=== PATIENT | female | born 1960 | race Caucasian/White ===

== ENCOUNTER 2017-02-21 10:38 | Emergency (ER) | payer BC ==
[~2017-02-21] VITALS: Ht 167.6 cm; Wt 80.0 kg
[2017-02-21 10:44] VITALS: BP 156/90; PULSE 81; RESP 15; TEMP 97.5; O2SAT 97
[2017-02-21] MEDS ORDERED: NEXI20CA PO (10:56)
[2017-02-21] MEDS ORDERED: ARMO180T PO (10:56)
[2017-02-21] MEDS ORDERED: LISI2.5T3 PO (10:56)
[2017-02-21] MEDS ORDERED: SODIUM CHLORIDE 0.9% FLUSH 10 ML FLUSH IVF PRN (11:00)
[2017-02-21] MEDS ORDERED: SODIUM CHLOR 0.9% 1000 ML INJ 1,000 ML IV ONE (11:15)
[2017-02-21 11:17] LABS: AUTOMATED NEUTROPHIL # 5.4 TH/MM3 (1.8-7.7); BASOPHIL # 0.1 TH/MM3 (0-0.2); BASOPHIL % 0.9 % (0.0-2.0); EOSINOPHIL # 0.2 TH/MM3 (0-0.4); EOSINOPHIL % 2.4 % (0.0-4.0); HEMATOCRIT 41.8 % (35.0-46.0); HEMO FLAGS DIFF FINAL; LYMPH % 16.8 % (9.0-44.0); LYMPHOCYTE # 1.3 TH/MM3 (1.0-4.8); MEAN CELL VOLUME 87.3 FL (80.0-100.0); MEAN CORPUSCULAR HEMOGLOBIN 29.7 PG (27.0-34.0); MONO % 7.4 % (0.0-8.0); NEUT % 72.5 % (16.0-70.0); PLATELET COUNT 319 TH/MM3 (150-450); RED CELL DISTRIBUTION WIDTH 12.6 % (11.6-17.2); WHITE BLOOD COUNT 7.6 TH/MM3 (4.0-11.0)
--- NOTE | 2017-02-21 11:17 | PD ---
HPI . Lightheadedness Chief Complaint: Syncope/Near-Syncope Time Seen by Provider: 11:00 Travel History International Travel<30 days: No Contact w/Intl Traveler<30days: No Traveled to known affect area: No History of Present Illness HPI Patient presents with a chief complaint of lightheadedness. Onset was yesterday. The patient admits that she's been outside a lot the last couple weeks and probably hasn't been drinking enough. She denies any other associated symptoms such as headache, blurred vision, chest pain, shortness of breath or nausea/vomiting. Symptoms are mild. The patient reports no obvious aggravating or relieving factors. PFSH Past Medical History Diminished Hearing: No GERD: Yes Hypertension: Yes Thyroid Disease: Yes Influenza Vaccination: Yes ?: Not Past Surgical History Cholecystectomy: Yes Other Surgery: Yes (breast augmentation) Social History Alcohol Use: Yes Tobacco Use: No Allergies-Medications (Allergen,Severity, Reaction): Coded Allergies: No Known Allergies (Unverified , 02/21/17) Reported Meds & Prescriptions Reported Meds & Active Scripts Active Reported Lisinopril 2.5 Mg Tab 2.5 Mg PO DAILY Nexium (Esomeprazole DR) 20 Mg Capdr 20 Mg PO DAILY [place] Thyroid (Thyroid) 180 Mg Tab 180 Mg PO DAILY Review of Systems Except as stated in HPI: all other systems reviewed are Neg General / Constitutional: No: Fever, Chills Eyes: No: Diploplia, Blurred Vision HENT: Positive: Lightheadedness, No: Headaches, Vertigo Cardiovascular: No: Chest Pain or Discomfort Respiratory: No: Shortness of Breath Gastrointestinal: No: Nausea, Vomiting Neurologic: No: Syncope, Focal Abnormalities, Headache, Change in Mentation, Slurred Speech Physical Exam Narrative GENERAL: Patient is awake and alert and in no acute distress. SKIN: Warm and dry. HEAD: Atraumatic. Normocephalic. EYES: Pupils equal and round. Extraocular movements are intact. ENT: No nasal bleeding or discharge. Mucous membranes pink and moist. NECK: Trachea midline. Neck is supple. CARDIOVASCULAR: Regular rate and rhythm. Heart sounds are normal. RESPIRATORY: No accessory muscle use. Lungs are clear with good air movement throughout. GASTROINTESTINAL: Abdomen soft, non-tender, nondistended. MUSCULOSKELETAL: No obvious deformities. No edema. NEUROLOGICAL: Awake and alert. No obvious cranial nerve deficits. Motor grossly within normal limits. Normal speech. Issurm-[id number] exam is intact. PSYCHIATRIC: Appropriate mood and affect; insight and judgment normal. Data Data Last Documented VS Vital Signs Date Time Temp Pulse Resp B/P Pulse Ox O2 Delivery O2 Flow Rate FiO2 02/21/17 11:23 82 18 180/69 87 18 180/86 94 18 183/98 02/21/17 10:44 97.5 97 Orders Electrocardiogram (02/21/17 11:00) Basic Metabolic Panel (Bmp) (02/21/17 11:00) Complete Blood Count With Diff (02/21/17 11:00) Ckmb (Isoenzyme) Profile (02/21/17 11:00) Troponin I (02/21/17 11:00) Ct Brain W/O Iv Contrast(Rout) (02/21/17 11:00) Ecg Monitoring (02/21/17 11:00) Iv Access Insert/Monitor (02/21/17 11:00) Oximetry (02/21/17 11:00) Sodium Chloride 0.9% Flush (Ns Flush) (02/21/17 11:00) Orthostatic Vital Signs (02/21/17 11:00) Sodium Chlor 0.9% 1000 Ml Inj (Ns 1000 M (02/21/17 11:15) Labs Laboratory Tests Test 02/21/17 11:05 White Blood Count 7.6 TH/MM3 Red Blood Count 4.80 MIL/MM3 Hemoglobin 14.2 GM/DL Hematocrit 41.8 % Mean Corpuscular Volume 87.3 FL Mean Corpuscular Hemoglobin 29.7 PG Mean Corpuscular Hemoglobin 34.0 % Concent Red Cell Distribution Width 12.6 % Platelet Count 319 TH/MM3 Mean Platelet Volume 7.9 FL Neutrophils (%) (Auto) 72.5 % Lymphocytes (%) (Auto) 16.8 % Monocytes (%) (Auto) 7.4 % Eosinophils (%) (Auto) 2.4 % Basophils (%) (Auto) 0.9 % Neutrophils # (Auto) 5.4 TH/MM3 Lymphocytes # (Auto) 1.3 TH/MM3 Monocytes # (Auto) 0.6 TH/MM3 Eosinophils # (Auto) 0.2 TH/MM3 Basophils # (Auto) 0.1 TH/MM3 CBC Comment DIFF FINAL Differential Comment Sodium Level 140 MEQ/L Potassium Level 3.9 MEQ/L Chloride Level 105 MEQ/L Carbon Dioxide Level 26.3 MEQ/L Anion Gap 9 MEQ/L Blood Urea Nitrogen 8 MG/DL Creatinine 0.61 MG/DL Estimat Glomerular Filtration 102 ML/MIN Rate Random Glucose 96 MG/DL Calcium Level 8.9 MG/DL Total Creatine Kinase 44 U/L Troponin I LESS THAN 0.02 NG/ML MDM Medical Decision Making Medical Screen Exam Complete: Yes Emergency Medical Condition: Yes Interpretation(s) EKG shows a normal sinus rhythm with no ST segment elevation or depression. Differential Diagnosis Differential diagnosis of dizziness includes but is not limited to vertigo, dehydration, acute blood loss, sepsis, ACS Narrative Course Patient presents for the evaluation of lightheadedness. She thinks that she has not been drinking enough. She does not have any other complaints. Orthostatic vital signs were negative. She did however complain of feeling lightheaded and weak on going from supine to sitting to standing. CBC & BMP Diagram 02/21/17 11:05 Cardiac enzymes are negative. Last Impressions Head CT 02/21/17 1100 Signed Impressions: Service Date/Time: Friday, February 21, 2017 11:16 - CONCLUSION: 1. No acute abnormality. Armani Pruett MD Emergency Department evaluation reveals no emergency medical condition. The patient is stable for discharge to home. Diagnosis Primary Impression: Lightheadedness Patient Instructions: General Instructions, Lightheadedness (ED) Disposition: 01 DISCHARGE HOME Condition: Stable Gladys Schumacher MD Feb 21, 2017 11:17
[2017-02-21 11:23] VITALS: BP_SYST 180; BP_SYST 183; BP_DIAS 69; BP_DIAS 86; BP_DIAS 98; RESP 18
[2017-02-21 11:28] LABS: CHLORIDE 105 MEQ/L (98-107); POTASSIUM 3.9 MEQ/L (3.5-5.1); SODIUM (NA) 140 MEQ/L (136-145)
[2017-02-21 11:31] LABS: ANION GAP 9 MEQ/L (5-15); BICARBONATE 26.3 MEQ/L (21.0-32.0)
[2017-02-21 11:32] LABS: BLOOD UREA NITROGEN 8 MG/DL (7-18)
[2017-02-21 11:35] LABS: GLOMERULAR FILTRATION RATE 102 ML/MIN (>89)
[2017-02-21 11:40] LABS: CREATINE KINASE 44 U/L (26-192)
--- NOTE | 2017-02-21 11:54 | RADRPT ---
EXAM DATE/TIME: 02/21/2017 11:16 [facility] COMPARISON: No previous studies available for comparison. INDICATIONS : General weakness. RADIATION DOSE: 66.38 CTDIvol (mGy) MEDICAL HISTORY : Hypothyroidism. Hypertension. SURGICAL HISTORY : Cholecystectomy. ENCOUNTER: Initial ACUITY: 1 day PAIN SCALE: 0/10 LOCATION: cranial TECHNIQUE: Multiple contiguous axial images were obtained of the head. Using automated exposure control and adj ustment of the mA and/or kV according to patient size, radiation dose was kept as low as reasonably a chievable to obtain optimal diagnostic quality images. DICOM format image data is available electro nically for review and comparison. FINDINGS: CEREBRUM: The ventricles are normal for age. No evidence of midline shift, mass lesion, hemorrhage or acute in farction. No extra-axial fluid collections are seen. POSTERIOR FOSSA: The cerebellum and brainstem are intact. The 4th ventricle is midline. The cerebellopontine angle i s unremarkable. EXTRACRANIAL: The visualized portion of the orbits is intact. SKULL: The calvaria is intact. No evidence of skull fracture. CONCLUSION: 1. No acute abnormality. Armani Pruett MD on February 21, 2017 at 11:37 Board Certified Radiologist. This report was verified electronically.
--- NOTE | 2017-02-21 16:06 | EKG ---
Date Performed: 02/21/2017 Time Performed: 11:09:59 PTAGE: 56 years EKG: Sinus rhythm NORMAL ECG NO PREVIOUS TRACING DOCTOR: Erasmo Jimenez Interpretating Date/Time 02/21/2017 16:06:15
== END 2017-02-21 12:46 | disposition home or self-care (01) ==
LOC: PHED 10:38
DX: R42 Dizziness and giddiness (principal); I10 Essential (primary) hypertension; E07.9 Disorder of thyroid, unspecified; Z87.19 Personal history of other diseases of the digestive system
CPT/HCPCS: 70450; 80048; 82550; 84484; 85025; 93005; 99285; J7030